=== PATIENT | male | born 1940 | race Caucasian/White ===

== ENCOUNTER 2022-02-05 10:17 | Outpatient (REF) | payer MEDICARE, MEDICAID, SELFPAY ==
--- NOTE | 2022-02-05 13:31 | MHC.AU.HAS ---
Hearing Aid Evaluation Date of Visit: 02/05/22 Refrigeration Service Technician Used: Chinese - In Person Historical Information: Description of Hearing: Mild to moderately-severe sensorineural hearing loss, bilaterally Summary: Advised binaural hearing aids given the significant, high-frequency sensorineural hearing loss. Hearing aids will help facilitate communication. Hearing Aid Prescription: Based on the individual?s shared listening needs, communication environments, dexterity, desire for connectivity, and personal preferences, the following prescription for amplification has been made: Right ear: Sock Liner: Phonak Model: Audeo P70-R Battery Size: Rechargeable Color: Biege Top Precipitator Operator Helper: 1M Type of Mold: Phonak canal lock c-shell Left ear: Left ear prescription to be same as Right Hearing Aid above: Sock Liner: Phonak Model: Audeo P70-R Battery Size: Rechargeable Color: Biege Top Precipitator Operator Helper: 2M Type of Mold: Phonak canal lock c-shell Plan of Care: Patient wishes to purchase hearing aids as prescribed Action Taken/Action Needed: Earmold Impressions Taken, Medical Clearance to be requested from PCP/ENT, Hearing Instrument Fitting to be scheduled when materials arrive Primary Diagnosis: H90.3 Bilateral Sensorineural Hearing Loss Signature: Provider: Soraya Gandara CCC-A
--- NOTE | 2022-02-05 13:41 | MHC.AU.MED ---
Medical Clearance for Hearing Instrumentation Date: 02/05/22 Patient Name: Chuy Ramirez Date of : 1940 Primary Care Provider: Referring Provider: VENTURA Trivedi We have seen your patient on 02/05/22 and have determined that they are a candidate for amplification (See accompanying report). Specifically, they would benefit from: Hearing aid use in both ears There is a statute that addresses Medical Evaluation Requirements prior to fitting a patient with a hearing aid. According to [place] statute 265 CMR:6.03(1), (a) General. Except as provided in 265 CMR 6.03(1)(b), a switch technician shall not sell a hearing aid unless the prospective user has presented to the switch technician a written statement signed by a licensed physician that states that the patient's hearing loss has been medically evaluated and the patient may be considered a candidate for a hearing aid. The medical evaluation must have taken place within the preceding six months. Please note: Due to the [place] Statute referenced above, we cannot accept a signature other than that of a licensed physician. SIZE MIXER and PA signatures cannot be accepted. I am in agreement with the above recommendation. There is no medical contraindication for hearing instrumentation. Physician Signature Date Physician Name (Printed)
--- NOTE | 2022-02-05 16:36 | MHC.AU.P13 ---
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 Ramirez reported a gradual change in his hearing that started about 1.5 years ago. He noted particular difficulty hearing and understanding speech from his left ear and that his ears often feel blocked. 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 Mr. Ramirez denied tinnitus and vertigo. However, he does have a history of stroke, which occurred about 2 years ago. Has hearing been tested previously?: Yes Previous Hearing Test Results: Unknown Medical History: Medical History: High Blood Pressure, Stroke Medication List: Diltiazem, Losartan, Atorvastatin, D3 Vitamin Otoscopy: Right Ear: Unremarkable Left Ear: Unremarkable Tympanometry: Tympanometry performed due to: Patient reports sensation that ears are blocked/plugged. Right Ear: Reduced Middle Ear Compliance (Type As) Left Ear: Normal Middle Ear System (Type A) Hearing Evaluation: Transducer(s) Used: Insert Earphones; Method: Conventional Audiometry; Stimuli Used: Pure Tones Right Ear: Description of Hearing: Mild to moderately-severe sensorineural hearing loss Left Ear: Description of Hearing: Mild to moderately-severe sensorineural hearing loss Speech Detection Threshold (SDT): Method Used: Conventional; Stimuli Used: Monitored Live Voice Right Ear: 25 dB HL Left Ear: 25 dB HL Word Discrimination: Could not test - Afghan speaking Recommendations: Trial with amplification is recommended. Medical clearance from a physician is required before fitting. Hearing Aid Fitting will be scheduled when all materials arrive. See Hearing Aid Evaluation report for more information. Hearing aid(s) will be ordered after approval is received. Diagnosis: Primary Diagnosis: H90.3 Bilateral Sensorineural Hearing Loss Secondary Diagnosis: Services Performed: Pure Tone- Air & Bone (CPT 50872) Tympanometry (CPT 15571) Signature: Provider: ELVA Bucio
== END 2022-02-05 10:18 | disposition home or self-care (01) ==
LOC: HO.SH 10:17
PROVIDERS: Visit Provider Physician Assistant Medical
DX: Z01.118 Encounter for examination of ears and hearing with other abnormal findings (principal); Z46.1 Encounter for fitting and adjustment of hearing aid; H90.3 Sensorineural hearing loss, bilateral
CPT/HCPCS: 92553; 92567; 92591; V5275

== ENCOUNTER 2022-04-07 10:48 | Outpatient (REF) | payer MEDICARE, MEDICAID, SELFPAY ==
--- NOTE | 2022-04-07 13:44 | MHC.AU.HFA ---
Hearing Instrument Fitting- Adult- Binaural Date of Visit: 04/07/22 Hearing Instruments Dispensed: Right Ear: Phonak Audeo P70-R SN: [id number] Color: Beige Repair Warranty: 06/11/2025 Loss and Damage Warranty: 06/12/2025 Service Plan: 04/07/2023 Battery Size: Rechargeable Audioprosthologist: 1M Type of Mold: Phonak canal lock c-shell SN: [id number] Latasha thru 06/13/22 Type of Wax Guard: CeruShield Disk Left Ear: Phonak Audeo P70-R SN: [id number] Color: Beige Repair Warranty: 06/11/2025 Loss and Damage Warranty: 06/11/2025 Service Plan: 04/07/2023 Battery Size: Rechargeable Audioprosthologist: 2M Type of Mold: Phonak canal lock c-shell SN: [id number] Latasha thru 06/13/22 Type of Wax Guard: CeruShield Disk Summary of Fitting: Performed feedback contract manager and real ear measurements. Comfortable at real ear settings. Discussed care, use, and rechargeability including cleaning, changing wax guard, volume control use and manually turning on/off. Practiced insertion and removal. Explained the importance of consistent use and the acclimatization period. Did not pair to cell phone at this time. Recommendations: A hearing instrument follow-up was scheduled. Please call our clinic with any questions or concerns. Diagnosis Code(s): Primary Diagnosis: H90.3 Bilateral Sensorineural Hearing Loss Signature: Provider: Domo Bucio, [facility]
== END 2022-04-07 10:49 | disposition home or self-care (01) ==
LOC: HO.HAP 10:48
PROVIDERS: Visit Provider Internal Medicine
DX: Z46.1 Encounter for fitting and adjustment of hearing aid (principal); H90.3 Sensorineural hearing loss, bilateral
CPT/HCPCS: V5011; V5020; V5160; V5261; V5264